=== PATIENT | female | born 1955 | race Caucasian/White ===

== ENCOUNTER 2019-08-24 11:30 | Outpatient (RCR) | payer MEDICARE, OTHER, SELFPAY ==
[2019-06-09 11:27] VITALS: BMI 25.3
--- NOTE | 2019-07-20 16:10 | HP.PTEVAL_ITS ---
Patient's Visit Information YON ARTIS is a 64 year old F referred to Physical Therapy by Ernesto Valadez DO with a diagnosis of Right shoulder s/p Breast Cancer Radiation.. Date of Evaluation: 07/20/19 Physical Therapist: Amber Puckett DPT - Visit Plan Frequency: 2x /Week Duration: 4 Weeks Plan: Focus on Scapular s/s and postural strengthening. 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 Had 4 lymph nodes removed and had some slight cording- but she reports that her mid spine and when she gets into bed she has some discomfort. She carries everything her right shoulder and neck. Its the right shoulder that bothers her. Was having therapy x4 in [place] then transferred down here. She had a large pop in the elbow and wrist. Has discomfort in the shoulder-dull and achy. radiates to the thoracic spine and carries tension in the upper trap. Does have bilateral N/T in hands/feet. Was doing ROM exercises for her shoulder. No specific imaging for the shoulder. Has problems with the right shoulder before. Goals for PT: get back to being active. Before: hiking, 10,000 steps a day. Retired in 2007. - Objective Posture: FH, RS- can correct but does not maintain- mild CT junction kyphosis. Gait: no deviation noted- good arm swing and trunk rotation. Palpation: tender along medial border of the scapula, upper trap from occiput to the tip of the acromion, bicipital groove. Minimal cording in the forearm. None noted in the upper arm or axillary. ROM: WFL in all planes- discomfort with IR. Strength: Scap: poor, Shoulder: 4/5 throughout, Elbow: 4+/5 with pain, Wrist: 5/5, Dwarf Tree Grower: equal to other side. Special Test: Impingment: positive, Empty Can: negative - Goals Goal 1:: Patient will be I with HEP and progression Goal Time Frame: 4-6 Weeks Goal 2:: Patient will demo full AROM with 0/10 pain Goal Time Frame: 4-6 Weeks Goal 3:: Patient will maintain proper posture t/o tx session to demo increased scap s/s. Goal Time Frame: 4-6 Weeks - Rehabilitation Potential Physical Therapy Diagnosis: Patient presents with hypomobility- she has decreased painfree ROM, strength and muscular endurance leading to increased pain with ADL's Rehabilitation Potential: Fair - Anticipated Interventions Therapeutic Exercise to Include: Strength training, Endurance training, Agility training, Body mechanics, Postural training, Flexibilty training, Passive ROM, Active ROM, Scapular Strength/Stabilization For the Purpose of:: To improve muscle performance and motor function Other electric stimulation: No Cryotherapy (ice pack, ice massage): Yes Thermo therapy (hot pack): Yes Ultrasound (thermal/non thermal): No Thank you for the opportunity to evaluate your patient. For Medicare and Medicare HMO plans, please review the plan of care and approve it. It will need to be FAXED BACK to us at [phone] for Medicare purposes. For Medicare only, by signing this I certify the plan of care. Please let me know if there are questions or concerns regarding this plan of care. Physician Signature: Date:
--- NOTE | 2019-08-24 11:44 | HP.PTDCSUM_ITS ---
HP - PT D/C Summary It has been my pleasure to treat YON GARCIAS under orders from Ernesto Valadez DO, for the diagnosis of Right shoulder s/p Breast Cancer Radiation. for a total of 8 visit(s). Discharge Date: Please see the following information for a summary of their discharge status. - Subjective Subjective: Patient reports that she just finished radiation last week. Shoulder feels like its not in the right position. Feels that she has a lots of knots in the neck. The arm is not bothering her- she does not feel like she has a lot of strength like opening up a water bottle. Feels a little bit of cording in the forearm is better. She goes back to the surgeon next week. She feels good overall- she is not unable to do anything at home. - Pain R SH Pain Intensity (Out of 10): 2 thoracic spine Pain Intensity (Out of 10): 3 - Overall Improvement % Improvement: 80 - Objective Objective/Function: Posture: FH, RS- can correct but does not maintain- mild CT junction kyphosis. Gait: no deviation noted- good arm swing and trunk rotation. Palpation: tender along medial border of the scapula, upper trap from occiput to the tip of the acromion, bicipital grooveincreased trigger points throughout. ROM: WFL in all planes- no pain. Strength: Scap: poor, Shoulder: 4+/5 throughout, Elbow: 4+/5, Wrist: 5/5, Multiple Tube Winding Machine Operator: equal to other side. Special Test: Impingment: positive, Empty Can: negative - Goals Goal 1:: Patient will be I with HEP and progression Goal Progress: Goal Met Goal 2:: Patient will demo full AROM with 0/10 pain Goal Progress: Goal Met Goal 3:: Patient will maintain proper posture t/o tx session to demo increased scap s/s. Goal Progress: Progressing - Plan Plan: Discharge to HEP- wants to take a break from apts all the time - D/C Information If there are questions or concerns regarding this patient's physical therapy, please feel free to call me at [phone]. Thank you for the referral of this patient. Sincerely, Amber Puckett DPT
== END 2019-08-24 19:00 | disposition home or self-care (01) ==
LOC: PT 11:30
PROVIDERS: Referring Provider Student in an Organized Health Care Education/Training Program; Visit Provider Student in an Organized Health Care Education/Training Program
DX: C50.919 Malignant neoplasm of unspecified site of unspecified female breast (principal)
CPT/HCPCS: 97110; 97140; 97162; 97164

== ENCOUNTER 2019-10-08 13:30 | Outpatient (RCR) | payer MEDICARE, OTHER, SELFPAY ==
[2019-06-09 11:27] VITALS: BMI 25.3
--- NOTE | 2019-09-30 09:57 | HP.OTEVAL_ITS ---
Patient's Visit Information YON GARCIAS is a 64 year old F, referred to Occupational Therapy by Ernesto Valadez DO, with a diagnosis of malignant neoplasm of Unspecified site breast. Date of Evaluation: 09/25/19 Occupational Therapist: Keily Rivera, GEER/Elin, CHT - Subjective Subjective: pt states she finished chemo 5 months ago. states she does have some nureopathy. states that she had sx with 4 lymph nodes removed. states 2019 she finished her radiation. pt states pianful to touch feels it when she touches her arm pit. Pt did go throght PT for shoulder ROM and neck soreness. pt would like to know how to initiate a PRE as her children got her a membership to a gym. - Pain right axillary 2 - ROM Shoulder: right 160 left 160 ROM Comments: pt demo external rotaion WNL - Strength Strength Comments: BUE grossly throughout 11/14 - Lymphedema (Circumferential Measure) MCP: right 18cm left 17.5cm Wrist: right 15cm left 14.5cm Lower forearm: right 18.5cm left 19cm Largest forearm: right 23cm left 23cm Elbow: right 24.5cm left 24cm Largest humerus: right 28.5cm left 29cm Axcillary: right 30cm left 30cm - Quick DASH-Disab of Arm,Shoulder& Hand Quick DASH Score: 22.7250 - Goals Goal:: pt will demo understanding of scar mtg/desensitization by end of 2nd session to easy of wearing clothing by d/c Goal:: PT will report no pulling at axillary region with right UE end range motion. Goal:: pt will demo understanding of initiating a PRE program to increase her functional strength and increase her healthy life style - Rehabilitation General Assessment: pt dx with right axillary cording, tenderness to touch at right axillary. Pt would benefit from skilled OT services 1x week for 3 weeks to ed. pt on scar desenitization, ROM to limit cording, lymphedema signs and symptoms as well as precautions. ed. on PRE HEP. Rehabilitation Potential: Good - Anticipated Interventions Anticipated Interventions: A/AAROM/PROM, Strengthening, Scar Care, Desensitization, Sensory Retraining, Ergonomic Education, Education re Diagnosis, Home Program - Visit Plan Frequency: 1x/Week Duration: 3 TEXT: Thank you for the opportunity to evaluate your patient. For Medicare and Medicare HMO plans, please review the plan of care and approve it. It will need to be FAXED BACK to us at [phone] for Medicare purposes. Please let me know if there are questions or concerns regarding this plan of care. Physician Signature : Date:
== END 2019-10-08 19:00 | disposition home or self-care (01) ==
LOC: OT 13:30
PROVIDERS: Referring Provider Student in an Organized Health Care Education/Training Program; Visit Provider Student in an Organized Health Care Education/Training Program
DX: M25.60 Stiffness of unspecified joint, not elsewhere classified (principal); C50.919 Malignant neoplasm of unspecified site of unspecified female breast
CPT/HCPCS: 97110; 97140; 97166

== ENCOUNTER 2020-02-08 16:30 | Outpatient (RCR) | payer MEDICARE, OTHER, SELFPAY ==
[2019-06-09 11:27] VITALS: BMI 25.3
--- NOTE | 2020-01-11 15:35 | HP.PTEVAL_ITS ---
Patient's Visit Information YON GARCIAS is a 64 year old F referred to Physical Therapy by Dr. Ernesto Valadez DO with a diagnosis of Neck and shld pain (malignant neoplasm female breast). Date of Evaluation: 01/11/20 Physical Therapist: PEPPER Arias - Visit Plan Frequency: 2x /Week Duration: 6 Weeks Plan: 2X/ week for 6 weeks for c-spine AROM, stretching, strengthening, MT to mid traps and levator, B shoulder AROM, chest and pec stretches, postural exercises, RC strengthening with HEP to be able to continue once PT is over. - Subjective Dr told pt that she has some cording and some swelling from the breast surgery. She told the Dr about her shoulder pain and neck pain. The cording never completely went away. Where they di did the lymph surgery still some cording and the shouldr pain could be from the radiation. She has pain on both shoulders and it is sharp with certain movments and she does not always know what will it bring it on. SOmetimes if she reaches behind or up overhead she will get the pain. The pain is the same on both sides. She reports that the neck pain is from positioing of the radiation. Pt has tingling sometimes when lays on her shoulders until she finds the right position. - Pain R shoulder pain Pain Intensity (Out of 10): 0 Pain Intensity Range: 10 Comment: when moves wrong way L shoulder pain Pain Intensity (Out of 10): 0 Pain Intensity Range: 10 Comment: When moves the wrong way. Neck pain Pain Intensity (Out of 10): 3 Pain Intensity Range: 5 - Objective B shoulder AROM: B shoulder flex approx 120 degrees, approx 160 degrees B abd (increase pain ful arc on the L more than the R), IR B T12, L 49 degrees, and 55 degrees. R handed (37#) and L (36#). R shoulder MMT: IR 3+/5 (pain), ER 4-/5 (pain), flexion 4-/5, Abd 4-/5. L shoulder MMT: IR 4-/5, ER 4-/5, Flex and Abd 4/5. Posture: rounded shoulders, poor scapular retraction. Palpation: tender B mid traps and a little tender B levators. C-spine AROM: flexion 100%, EXT 50% (increase pain), SB B 75% (increase pain) rotation B 75% - Goals Goal 1:: I HEP Goal Time Frame: 4-6 Weeks Goal 2:: Decrease neck and B shoulder pain to 1/10 with ADL's Goal Time Frame: 4-6 Weeks Goal 3:: Icrease B shoulder IR/ER strength to 4/5 without pain ( at time of eval: R shoulder MMT: IR 3+/5 (pain), ER 4-/5 (pain), flexion 4-/5, Abd 4-/5. L shoulder MMT: IR 4-/5, ER 4-/5, Flex and Abd 4/5) Goal Time Frame: 4-6 Weeks Goal 4:: Be able to sit with upright posture during treatment session without pain Goal Time Frame: 4-6 Weeks Goal 5:: Increase C-spine AROM to full ROM without pain ( at time of the eval: C-spine AROM: flexion 100%, EXT 50% (increase pain), SB B 75% (increase pain) rotation B 75%) - Rehabilitation Potential Rehabilitation Potential: Good - Anticipated Interventions Patient/Client Instruction: Educate patient on: Condition, Plan of Care For the Purpose of:: To decrease pain, To increase ROM, To improve nutrient delivery to tissue, To improve muscle performance and motor function, To increas e tolerance to activity/condition/position, To improve performance and independence with ADL's, To improve ability of physical actions for home/community/work/leisure, To improve health of tissue, To decrease soft tissue restriction, To increase flexibility/ROM Therapeutic Exercise to Include: Strength training, Endurance training, Body mechanics, Postural training, Flexibilty training, Active ROM, Scapular Strength/Stabilization For the Purpose of:: To decrease pain, To increase ROM, To improve nutrient delivery to tissue, To improve muscle performance and motor function, To improve ability to perform ADL's, To increase tolerance to activity/condition/position, To improve performance and independence with ADL's, To improve health of tissue, To decrease soft tissue restriction, To increase flexibility/ROM Manual Therapy Techniques to Include: Massage, Passive ROM, Soft tissue mobilization For the Purpose of:: To decrease pain, To increase ROM, To improve nutrient delivery to tissue, To improve muscle performance and motor function, To improve health of tissue, To decrease soft tissue restriction, To increase flexibility/ROM Thank you for the opportunity to evaluate your patient. For Medicare and Medicare HMO plans, please review the plan of care and approve it. It will need to be FAXED BACK to us at [phone] for Medicare purposes. For Medicare only, by signing this I certify the plan of care. Please let me know if there are questions or concerns regarding this plan of care. Physician Signature: Date:
--- NOTE | 2020-01-15 06:53 | HP.OTEVAL ---
Patient's Visit Information YON GARCIAS is a 64 year old F, referred to Occupational Therapy by Dr. Ernesto Valadez DO, with a diagnosis of malignant neoplasm female breast. Date of Evaluation: 01/11/20 Occupational Therapist: Keily Rivera, JUNIOR/Elin, CHT - Subjective This 64 year old female was seen for OT eval with Dx of malignant neoplasm female breast. Pt has been seen in our facility in the past and was D/C with HEP. prior to gov. stay at home order pt was exercising daily. Since she has not been able to exercise she has noticed a increase in sorness under her right UE and her side- pt reports increase fluid just below her right breast. States when she bends forward she gets a stabbing pain on her right side. Pt will se physical therapy for posture and UE ROM - OT for ed. 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 - Pain right axillary 2 Pain Intensity Range: 6 chest wall 2 Pain Intensity Range: 6 - Lymphedema (Circumferential Measure) MCP: right 17.5 cm left 17.5 cm Wrist: right 14.5cm left 14.5 cm Lower forearm: right 19cm left 19cm Largest forearm: right 24.5cm left 23cm Elbow: right 25cm left 24cm Largest humerus: right 28cm left 29cm Axcillary: right 31cm left 30 Upper Exremity Comments: chest 84cm. chest lower level 81cm - Quick DASH-Disab of Arm,Shoulder& Hand Quick DASH Score: 34.0900 - Goals Demonstrate adequate knowledge of self-massage by 2nd week: Yes Demonstrate adequate knowledge skin care/prec by 2nd week: Yes Demonstrate adequate knowledge therapeutic exercises by d/c: Yes Select approp compression garment w/donning/care/wear by d/c: Yes Voice need to replace compression garment every 4-6mo by dc: Yes - Rehabilitation General Assessment: Pt points to sore or painful areas on right chest wall and axillary area. pain is around scars from lung and breast sx. noted increase swelling around chest wall. Pts pain and edema is limiting her ind. with ADLs and IADLS at this time. Pt would benefit from skilled OT services 1-2 x week for 4 weeks to ed. pt on self manual lymph draninage, use of compression garments possible one for her chest wall. Pt demo understanding and agree to POC Rehabilitation Potential: Good - Anticipated Interventions A/AAROM/PROM, Triggerpoint Release, Desensitization, Education re Diagnosis, Manual Lymph Drainage, Education re Life-long lymphedema Management, Education re Skin Care and Precautions, Education re Self Massage Techniques, Education re Correct Donning Tech,Care&Wearing Sched Comp Garments, Home Program - Visit Plan Frequency: 1-2x /Week Duration: 4 Weeks TEXT: Thank you for the opportunity to evaluate your patient. For Medicare and Medicare HMO plans, please review the plan of care and approve it. It will need to be FAXED BACK to us at [phone] for Medicare purposes. Please let me know if there are questions or concerns regarding this plan of care. Physician Signature: Date:
--- NOTE | 2020-02-08 17:28 | HP.PTDCSUM ---
It has been my pleasure to treat YON GARCIAS referred by Dr. Ernesto Valadez DO, with the diagnosis of Neck and shld pain (malignant neoplasm female breast) for a total of 9 visit(s). Discharge Date: 02/08/20 Please see the following information for a summary of their discharge status. Subjective: Pt still has tightness in her shoudlers and in her neck. It feels good while working on it but it does not seem to last. She thinks that a lot of it She has some exercises that she is working on. She feels that this is her new normal. She RTD (surgeon) and mamogram this month and the last one in December he notices the lymphedma and then sent to PT and OT. She wants to contineu with the exercises at home. She is ready to be on her own. She has always had a problem with sleeping.... she sitches positions... R shoulder pain Pain Intensity (Out of 10): 3 L shoulder pain Pain Intensity (Out of 10): 3 Neck pain Pain Intensity (Out of 10): 3 LB Pain Intensity (Out of 10): 3 % Improvement: 10 Objective/Function: c-spine AROM: flexion 100%, Ext 75%, SB B 75% and Rotation 75% normal ROM. UE MMT: flex and abd B 4/5 and IR/ER 4/5 with increase pain on the R shoulder with both IR/ER. Goal 1:: I HEP Goal Progress: Goal Met Goal 2:: Decrease neck and B shoulder pain to 1/10 with ADL's Goal Progress: Goal Met Goal 3:: Icrease B shoulder IR/ER strength to 4/5 without pain ( at time of eval: R shoulder MMT: IR 3+/5 (pain), ER 4-/5 (pain), flexion 4-/5, Abd 4-/5. L shoulder MMT: IR 4-/5, ER 4-/5, Flex and Abd 4/5) Goal Progress: Goal Met Goal 4:: Be able to sit with upright posture during treatment session without pain Goal Progress: Goal Met Goal 5:: Increase C-spine AROM to full ROM without pain ( at time of the eval: C-spine AROM: flexion 100%, EXT 50% (increase pain), SB B 75% (increase pain) rotation B 75%) Goal Progress: Progressing Plan: Give pt YTB bilat ER, IR and OTB Midrows next session for HEP. 2X/ week for 6 weeks for c-spine AROM, stretching, strengthening, MT to mid traps and levator, B shoulder AROM, chest and pec stretches, postural exercises, RC strengthening with HEP to be able to continue once PT is over. Discharge Comments: DC PT to HEP If there are questions or concerns regarding this patient's physical therapy, please feel free to call me at [phone]. Thank you for the referral of this patient. Sincerely, Narcisa Bang, MPT
== END 2020-02-08 19:00 | disposition home or self-care (01) ==
LOC: PT 16:30
PROVIDERS: Referring Provider Student in an Organized Health Care Education/Training Program; Visit Provider Student in an Organized Health Care Education/Training Program
DX: M25.612 Stiffness of left shoulder, not elsewhere classified (principal); M25.611 Stiffness of right shoulder, not elsewhere classified; M43.6 Torticollis; M54.2 Cervicalgia; C50.919 Malignant neoplasm of unspecified site of unspecified female breast
CPT/HCPCS: 97110; 97140; 97162; 97166; 97530

== ENCOUNTER → 2020-02-22 08:52 | Outpatient (CLI) | payer MEDICARE, OTHER, SELFPAY ==
[2019-06-09 11:27] VITALS: BMI 25.3
--- NOTE | 2020-02-22 09:03 | BI_ITS ---
MAMMOGRAPHY - BILATERAL DIAGNOSTIC REASON FOR EXAM: Female, 64 years old. Prior right lumpectomy and lymph node dissection. PERTINENT HISTORY: Personal history of breast cancer. TECHNIQUE: Digital bilateral breast lily (3D mammographic acquisition) in the CC and MLO projections. 2-D mediolateral oblique (MLO) and craniocaudad (CC) views of both breasts were obtained. CAD: Full Field Digital Mammography with Computer Added Detection was performed. COMPARISON: Comparison is made with prior examination dated October 01, 2018. FINDINGS: Breast Composition: There are scattered areas of fibroglandular density. There are no dominant masses or suspicious calcifications. Since prior study, the patient underwent a lumpectomy in the deep upper medial aspect of the right breast. The nodular mass has been resected. There is dense of postoperative deformity of the right breast. Surgical clips are seen in the right axillary region. No other significant abnormalities are identified. BI/DIAG MAMM W/CAD, BILAT IMPRESSION: Status post lumpectomy of the upper deep medial portion of the right breast. One year follow-up recommended. (A) ASSESSMENT CATEGORY: BIRADS Category 2: Benign. A letter regarding these results will be sent to the patient by the facility within 30 days. Approximately 10% of breast cancers are not detected by mammography. A normal mammogram should not delay biopsy of a clinically suspicious abnormality. Electronically Signed: Charbel Velasquez, at 10:16 EDT , Service support ,
== END ==
PROVIDERS: Referring Provider Student in an Organized Health Care Education/Training Program; Visit Provider Student in an Organized Health Care Education/Training Program
DX: Z12.31 Encounter for screening mammogram for malignant neoplasm of breast (principal); C50.919 Malignant neoplasm of unspecified site of unspecified female breast; Z85.3 Personal history of malignant neoplasm of breast
CPT/HCPCS: 77062; 77066; G0279

== ENCOUNTER → 2021-02-22 10:32 | Outpatient (CLI) | payer MEDICARE, OTHER, SELFPAY ==
[2019-06-09 11:27] VITALS: BMI 25.3
--- NOTE | 2021-02-22 10:38 | BI_ITS ---
MAMMOGRAPHY - BILATERAL SCREENING REASON FOR EXAM: Female, 65 years old. Routine annual screening examination. PERTINENT HISTORY: Personal history of breast cancer. Prior lumpectomy with chemotherapy. TECHNIQUE: Digital bilateral breast bobby (3D mammographic acquisition) in the CC and MLO projections. 2-D mediolateral oblique (MLO) and craniocaudad (CC) views of both breasts were obtained. CAD: Full Field Digital Mammography with Computer Added Detection was performed. COMPARISON: Comparison is made with prior examination dated 02/22/2020. FINDINGS: Breast Composition: There are scattered areas of fibroglandular density. There are no dominant masses or suspicious calcifications. Once again, the patient is status post lumpectomy in the deep upper medial aspect of the right breast. Postsurgical changes are seen with the skin thickening. Surgical clips are also seen in the right axillary region. No other significant abnormalities are identified. There has been no significant change since the prior study. BI/SCRN MAMM (CAD)W/BOBBY BILAT IMPRESSION: Stable bilateral screening mammogram. Yearly follow-up mammogram recommended. (A) ASSESSMENT CATEGORY: BIRADS Category 2: Benign. A letter regarding these results will be sent to the patient by the facility within 30 days. Approximately 10% of breast cancers are not detected by mammography. A normal mammogram should not delay biopsy of a clinically suspicious abnormality. [id number] Electronically Signed: Charbel Velasquez MD at 11:25 EDT , Service support ,
== END ==
PROVIDERS: Referring Provider Student in an Organized Health Care Education/Training Program; Visit Provider Student in an Organized Health Care Education/Training Program
DX: Z12.31 Encounter for screening mammogram for malignant neoplasm of breast (principal); Z85.3 Personal history of malignant neoplasm of breast
CPT/HCPCS: 77063; 77067

== ENCOUNTER → 2022-02-26 | Outpatient (CLI) | payer MEDICARE, OTHER, SELFPAY ==
[2019-06-09 11:27] VITALS: BMI 25.3
--- NOTE | 2022-02-26 10:03 | BI_ITS ---
MAMMOGRAPHY - BILATERAL SCREENING REASON FOR EXAM: Female, 66 years old. Routine annual screening examination. PERTINENT HISTORY: Personal history of breast cancer. Prior right lumpectomy with chemotherapy, radiation therapy and lymph node dissection. TECHNIQUE: Digital bilateral breast bobby (3D mammographic acquisition) in the CC and MLO projections. 2-D mediolateral oblique (MLO) and craniocaudad (CC) views of both breasts were obtained. CAD: Full Field Digital Mammography with Computer Added Detection was performed. COMPARISON: Comparison is made with prior study dated 02/22/2021 and 02/22/2020. FINDINGS: Breast Composition: There are scattered areas of fibroglandular density. There are no dominant masses or suspicious calcifications. The patient is status post lumpectomy in the retroareolar region of the right breast with resultant scarring and overlying skin thickening. This is unchanged. Surgical clips are seen in the right axillary region. No other significant abnormalities are identified. There has been no significant change since the prior study. BI/SCRN MAMM (CAD)W/BOBBY BILAT IMPRESSION: Stable bilateral screening mammogram. Yearly follow-up mammogram recommended. (A) ASSESSMENT CATEGORY: BIRADS Category 2: Benign. A letter regarding these results will be sent to the patient by the facility within 30 days. Approximately 10% of breast cancers are not detected by mammography. A normal mammogram should not delay biopsy of a clinically suspicious abnormality. [id number] Electronically Signed: Charbel Velasquez MD at 11:01 EDT ,
== END | disposition home or self-care (01) ==
PROVIDERS: Visit Provider Student in an Organized Health Care Education/Training Program
DX: Z12.31 Encounter for screening mammogram for malignant neoplasm of breast (principal)
CPT/HCPCS: 77063; 77067

== ENCOUNTER → 2022-09-11 | Outpatient (CLI) | payer MEDICARE, OTHER, SELFPAY ==
[2019-06-09 11:27] VITALS: BMI 25.3
--- NOTE | 2022-09-11 14:19 | BI_ITS ---
MAMMOGRAPHY - UNILATERAL DIAGNOSTIC: RIGHT BREAST REASON FOR EXAM: Female, 67 years old. Right breast lump at the 2 o''clock position of the breast. PERTINENT HISTORY: Personal history of breast cancer. Prior right lumpectomy. TECHNIQUE: Digital unilateral breast lily (3D mammographic acquisition) in the CC and MLO projections. 2-D mediolateral oblique (MLO) and craniocaudad (CC) views of both breasts were obtained. CAD: Full Field Digital Mammography with Computer Added Detection was performed. COMPARISON: Comparison is made with prior study dated 02/26/2022. FINDINGS: Breast Composition: There are scattered areas of fibroglandular density. There are no dominant masses or suspicious calcifications. Once again, the patient status post ectomy in the retroareolar region of the right breast with resultant postoperative scarring and overlying skin thickening. Surgical clips are seen in the right axillary region. No other significant abnormalities are identified. There has been no significant change since the prior study. BI/DIAG MAMM W/CAD, UNILAT IMPRESSION: Stable unilateral diagnostic mammogram. With the patient''s history of a palpable lump in the right breast, targeted ultrasound correlation is recommended. ASSESSMENT CATEGORY: BIRADS Category 0: Incomplete. Need additional imaging evaluation. A letter regarding these results will be sent to the patient by the facility within 30 days. Approximately 10% of breast cancers are not detected by mammography. A normal mammogram should not delay biopsy of a clinically suspicious abnormality. Electronically Signed: Charbel Velasquez MD at 15:27 EST ,
--- NOTE | 2022-09-11 14:19 | US_ITS ---
STUDY: ULTRASOUND BREAST - RIGHT REASON FOR EXAM: Female, 67 years old. The physician felt a lump at the 12 o''clock position of the right breast. TECHNIQUE: Axial and longitudinal images of the RIGHT breast were performed with a high resolution ultrasound transducer. # OF IMAGES: 30 COMPARISON: Comparison is made with prior mammogram done earlier today. FINDINGS: RIGHT Breast: The upper half of the right breast was examined with ultrasound. There is scattered fibroglandular tissue. No sonographic abnormality is seen. US/Breast Limited Unilateral IMPRESSION: No sonographic abnormality is seen. ASSESSMENT CATEGORY: BIRADS Category 1: Negative. A letter regarding these results will be sent to the patient by the facility within 30 days. Electronically Signed: Charbel Velasquez MD at 15:37 EST ,
== END | disposition home or self-care (01) ==
PROVIDERS: Referring Provider Student in an Organized Health Care Education/Training Program
DX: N63.11 Unspecified lump in the right breast, upper outer quadrant (principal); Z85.3 Personal history of malignant neoplasm of breast
CPT/HCPCS: 76642; 77061; 77065; G0279

== ENCOUNTER → 2023-02-27 | Outpatient (CLI) | payer MEDICARE, OTHER, SELFPAY ==
[2019-06-09 11:27] VITALS: BMI 25.3
--- NOTE | 2023-02-27 10:51 | BI_ITS ---
MAMMOGRAPHY - BILATERAL SCREENING 3-D TOMOSYNTHESIS REASON FOR EXAM: Female, 67 years old. Routine screening PERTINENT HISTORY: Personal history of breast cancer with previous right lumpectomy TECHNIQUE: 2-D mammograms and 3-D Tomosynthesis of the breast (s) were performed. CAD was performed. COMPARISON: 02/26/2022 FINDINGS: The breast composition is composed of scattered fibroglandular density. Scattered benign calcifications are seen. No dense spiculated masses or suspicious microcalcifications are identified. No architectural distortion is identified. There is no skin thickening or retraction. There has been no significant change since the prior study. BI/SCRN MAMM (CAD)W/BOBBY BILAT IMPRESSION: No mammographic signs of malignancy. Routine yearly mammograms recommended. ASSESSMENT CATEGORY: BIRADS Category 2: Benign. A letter regarding these results will be sent to the patient by the facility within 30 days. FOLLOW UP RECOMMENDATION: Yearly follow up mammogram recommended. (A) Approximately 10% of breast cancers are not detected by mammography. A normal mammogram should not delay biopsy of a clinically suspicious abnormality. Electronically Signed: Jose Miguel Montemayor MD at 12:31 EDT ,
== END | disposition home or self-care (01) ==
PROVIDERS: Referring Provider Student in an Organized Health Care Education/Training Program; Visit Provider Student in an Organized Health Care Education/Training Program
DX: Z12.31 Encounter for screening mammogram for malignant neoplasm of breast (principal)
CPT/HCPCS: 77063; 77067

== ENCOUNTER → 2024-03-05 | Outpatient (CLI) | payer MEDICARE, OTHER, SELFPAY ==
[2019-06-09 11:27] VITALS: BMI 25.3
--- NOTE | 2024-03-05 10:40 | BI_ITS ---
MAMMOGRAPHY - BILATERAL SCREENING REASON FOR EXAM: Female, 68 years old. Routine annual screening examination. PERTINENT HISTORY: Personal history of breast cancer. Prior right lumpectomy with chemotherapy. TECHNIQUE: Digital bilateral breast bobby (3D mammographic acquisition) in the CC and MLO projections. 2-D mediolateral oblique (MLO) and craniocaudad (CC) views of both breasts were obtained. CAD: Full Field Digital Mammography with Computer Added Detection was performed. COMPARISON: Comparison is made with prior study dated February 27, 2023 and February 21, 2022. FINDINGS: Breast Composition: There are scattered areas of fibroglandular density. There are no dominant masses or suspicious calcifications. The patient is status post lumpectomy in the retroareolar region of the right breast with resultant postoperative scarring and the overlying deformity with retraction of the areolar complex. Surgical clips are seen in the right axilla. No other significant abnormalities are identified. There has been no significant change since the prior study. BI/SCRN MAMM (CAD)W/BOBBY BILAT IMPRESSION: Stable bilateral screening mammogram. Yearly follow-up mammogram recommended. (A) ASSESSMENT CATEGORY: BIRADS Category 2: Benign. A letter regarding these results will be sent to the patient by the facility within 30 days. Approximately 10% of breast cancers are not detected by mammography. A normal mammogram should not delay biopsy of a clinically suspicious abnormality. [id number] Electronically Signed: Charbel Velasquez MD at 13:29 EDT ,
== END | disposition home or self-care (01) ==
LOC: OPBI 10:40
PROVIDERS: Referring Provider Student in an Organized Health Care Education/Training Program; Visit Provider Student in an Organized Health Care Education/Training Program
DX: Z12.31 Encounter for screening mammogram for malignant neoplasm of breast (principal); Z85.3 Personal history of malignant neoplasm of breast
CPT/HCPCS: 77063; 77067

== ENCOUNTER → 2025-03-08 | Outpatient (CLI) | payer MEDICARE, OTHER, SELFPAY ==
[2019-06-09 11:27] VITALS: BMI 25.3
--- NOTE | 2025-03-08 11:43 | BI_ITS ---
EXAM: SCRN MAMM (CAD)W/BOBBY BILAT DATE: 03/08/2025 CLINICAL HISTORY: F, Age 69 y/o , FOLLOW UP TREATED BREAST CANCER Personal history of breast cancer. History of prior right lumpectomy and chemotherapy. TECHNIQUE: SCRN MAMM (CAD)W/BOBBY BILAT COMPARISON: Prior exam(s) dated March 05, 2024.. FINDINGS: TISSUE DENSITY: There are scattered areas of fibroglandular density. Bilateral Breast Mammographic Findings: No significant masses, calcifications or other abnormalities are identified. The patient is status post lumpectomy in the retroareolar region of the right breast with resultant postoperative scarring and deformity with retraction of the alveolar complex. Surgical clips are seen in the right axilla. No suspicious masses, areas of developing architectural distortion, or suspicious calcifications. There has been no significant interval change. BI/SCRN MAMM (CAD)W/BOBBY BILAT IMPRESSION: Stable examination. OVERALL FINAL ASSESSMENT BI-RADS 2: BENIGN RECOMMENDATION: Routine annual follow-up in 1 Year A letter with findings and recommendations will be mailed to the patient. Reading Location: [id number]
== END | disposition home or self-care (01) ==
PROVIDERS: PCP Internal Medicine; Referring Provider Student in an Organized Health Care Education/Training Program; Visit Provider Student in an Organized Health Care Education/Training Program
DX: Z12.31 Encounter for screening mammogram for malignant neoplasm of breast (principal); Z85.3 Personal history of malignant neoplasm of breast
CPT/HCPCS: 77063; 77067